=== PATIENT | male | born 1955 | race Caucasian/White ===

== ENCOUNTER → 2020-09-04 10:30 | Outpatient (CLI) | payer BC, SELFPAY ==
[2020-09-04 11:06] LABS: COVID19 -Nasal RAPID Negative (Negative)
== END ==
PROVIDERS: PCP Family Medicine; Visit Provider Specialist
DX: Z01.812 Encounter for preprocedural laboratory examination (principal); Z20.822 Contact with and (suspected) exposure to COVID-19
CPT/HCPCS: 87635; C9803

== ENCOUNTER 2020-09-07 14:15 | Day surgery (SDC) | payer BC, SELFPAY ==
[2020-09-04 09:38] VITALS: BMI 26.4
[2020-09-07 14:37] VITALS: BP 129/84; PULSE 65; RESP 18; TEMP 36.3; O2SAT 96; BMI 25.8
[2020-09-07] MEDS: LACTATED RINGERS 1,000 ML 100 ML IV (15:03)
--- NOTE | 2020-09-07 15:33 | PM.PREOP ---
Pre-operative Note COVID-19 COVID-19 status: Negative Result date/Date tested (Pos, Neg/Pending): 09/04/20 Interval Note History & Physical reviewed/Exam performed by Physician: Yes Changes to H&P: No
[2020-09-07] MEDS: CEFAZOLIN 2 GM/100 ML FROZ.PIGGY IV (15:36)
--- NOTE | 2020-09-07 15:57 | SUR.OPER ---
Supine on padded OR bed, head on pillow, arms secured on padded arm boards at <90 degrees abduction, legs uncrossed, safety belt at thigh, tape over blanket over lower legs.
[2020-09-07 16:31] VITALS: BP 102/69; PULSE 58; RESP 12; TEMP 36.9; O2SAT 95
[2020-09-07] MEDS: BUPIVACAINE 0.5% (PF) VIAL 30 ML INJ (16:35)
[2020-09-07 16:36] VITALS: BP 98/62; PULSE 57; RESP 10; O2SAT 93
[2020-09-07 16:41] VITALS: BP 125/80; PULSE 65; RESP 11; O2SAT 94
--- NOTE | 2020-09-07 16:41 | SUR.PHASEI ---
awake, drowsy, denies pain/nausea; HOB elevated, juice given.
--- NOTE | 2020-09-07 16:42 | SUR.PHASEI ---
Denies dizziness or light headedness. Introduced himself, polite manners
--- NOTE | 2020-09-07 16:44 | PM.OP.1 ---
Operative Date/Time/Diagnoses Date of procedure: 09/07/20 Time of procedure: 16:44 Pre-op diagnosis: Epigastric hernia. Hemorrhoids. Possible rectal prolapse. Post-op diagnosis: same Procedure & Clinicians Procedure: Anoscopy. Repair of epigastric hernia with underlay of mesh. Same procedure as scheduled: Yes Indications: Determine nature of prolapse. Repair hernia. Surgeon: Hansel Young Click Yes if Unassisted: Yes Anesthesia Type: General Operative Notes Findings: Small amount of mucosal prolapse along with principally external and internal hemorrhoids.. Patient would do well with a simple hemorrhoidectomy. Small epigastric defects. Repaired with an underlay of mesh. Teeth Closure Type: primary Specimen(s): none sent Prosthetic devices, grafts, tissues, transplants, or devices: 1.7 in circular mesh Estimated Blood Loss (mL): 5 Blood products transfused: none Procedure in detail: Patient was placed supine on the operating room table underwent general LMA anesthesia. Legs were bent upward an anoscope inserted into his anus. A small amount meat of mucosal prolapse overlying an internal hemorrhoid. There were 2 columns of hemorrhoids it would probably benefit from hemorrhoidectomy. The amount of rectal prolapse was minimal and would probably be amenable to have a simple hemorrhoidectomy to control the problem. Anoscope was removed. The patient's legs were straightened and he was prepped and draped in the usual fashion to repairs hernia. Small incision was made in the upper abdomen and carried down level of fascia. I cleared the anterior fascia in the midline and identified the hernia. The consisted preperitoneal fat. This was reduced. The fascial edge was cleared. I extended the fascial defect about a mm or I could insert a finger and feel for additional hernias. None was found. I placed a circular piece of mesh under it incorporated the tails into the fascial repair which was undertaken with interrupted 1. Ethibond suture. The subQ was closed with interrupted 3 0 Vicryl and skin was closed a running 4-0 Vicryl subcuticular stitch and Steri-Strips. Dressing was applied. Patient was awakened extubated taken recovery area in good condition. Complications: none Post-operative Condition: stable Disposition: PACU Plan for aftercare: Follow-up in the office
[2020-09-07 16:51] VITALS: BP 111/69; PULSE 58; RESP 10; TEMP 36.2; O2SAT 94
[2020-09-07 17:01] VITALS: BP 133/89; PULSE 67; RESP 95; TEMP 36.3; O2SAT 18
[2020-09-07] MEDS: OXYCODONE/ACETAMINOPHEN 5/325 TABLET 1 TAB PO (17:01)
== END 2020-09-07 17:15 | disposition home or self-care (01) ==
PROVIDERS: PCP Family Medicine; Referring Provider Specialist; Visit Provider Specialist
PROC: (CPT 49560; principal; 2020-09-07 15:15)
PROC: (CPT 45990; 2020-09-07 15:15)
DX: K43.9 Ventral hernia without obstruction or gangrene (principal); K62.3 Rectal prolapse; I10 Essential (primary) hypertension; E78.5 Hyperlipidemia, unspecified; K64.8 Other hemorrhoids
CPT/HCPCS: 49560; 46600; 49568; 82962; C1781; J0690; J2704; J3010

== ENCOUNTER → 2020-10-09 10:27 | Outpatient (CLI) | payer BC, SELFPAY ==
[2020-10-09 10:59] LABS: COVID19 -Nasal RAPID Negative (Negative)
== END ==
PROVIDERS: PCP Family Medicine; Visit Provider Specialist
DX: Z20.822 Contact with and (suspected) exposure to COVID-19 (principal)
CPT/HCPCS: 87635; C9803

== ENCOUNTER 2020-10-12 06:32 | Day surgery (SDC) | payer BC, SELFPAY ==
[2020-10-07 16:50] VITALS: BMI 26.4
[2020-10-12] VITALS (9 sets, daily range): BP systolic 116–124; BP diastolic 68–81; PULSE 55–81; RESP 8–16; TEMP 36.2–36.8; O2SAT 91–96; BMI 26.0
--- NOTE | 2020-10-12 | PATH_ITS ---
[facility] Accession Number: [id number] . 01 Material submitted: . PART A: hemorrhoids - LEFT LATERAL HEMORRHOID PART B: hemorrhoids - RIGHT LATERAL HEMORRHOID PART C: hemorrhoids - RIGHT ANTERIOR LATERAL HEMORRHOID . 02 Diagnosis: A. Left Lateral Hemorrhoid, Biopsy: Consistent with hemorrhoidal tissue. . B. Right Lateral Hemorrhoid, Biopsy: 1. Tubular adenoma. 2. Consistent with hemorrhoidal tissue. . C. Right Anterior Lateral Hemorrhoid, Biopsy: Consistent with hemorrhoidal tissue. I 10/15/2020 1533 Local . 02 Electronically signed: . Lavinia Salas MD, Pathologist NPI- [id number] . 01 Gross description: . A. Specimen A is received in formalin, labeled left lateral hemorrhoid and consists of a 2.5 x 1.5 x 1.5 cm urena-pink wrinkled skin. The margin is inked blue. The specimen is serially sectioned and entirely submitted in cassettes A1-A2. B. Specimen B is received in formalin, labeled right lateral hemorrhoid and consists of a 2.5 x 2.0 x 1.0 cm urena-pink wrinkled skin. The margin is inked blue. The specimen is serially sectioned and entirely submitted in cassettes B1-B2. C. Specimen C is received in formalin, labeled right anterior lateral hemorrhoid and consists of two urena-pink fragments of soft tissue measuring 2.0 x 1.5 x 0.5 cm in aggregate. The margins are inked blue. The specimen is serially sectioned and entirely submitted in cassettes C1-C2. ([id number]) /[facility] 10/13/2020 1637 Local . 02 Pathologist provided ICD-10: D12.8, K64.0 . 02 CPT . 454561, 158163, 977997 Performed at: 01 [facility] [address] [id number] MD Tano Asher MD Phone: [phone] Performed at: 02 [facility] [address] [place], [place] [id number] MD Lavinia Salas MD Phone: [phone]
[2020-10-12] MEDS: ACETAMINOPHEN 325 MG TABLET 975 MG PO (06:53)
[2020-10-12] MEDS: LACTATED RINGERS 1,000 ML 42 ML IV (07:01)
--- NOTE | 2020-10-12 07:49 | PM.PREOP ---
Pre-operative Note COVID-19 COVID-19 status: Negative Result date/Date tested (Pos, Neg/Pending): 10/09/20 Interval Note History & Physical reviewed/Exam performed by Physician: Yes Changes to H&P: No
--- NOTE | 2020-10-12 08:16 | SUR.OPER ---
Prone on padded OR bed, head in foam head support, gel chest rolls, gel pad under knees, pillow under lower legs, toes free of pressure, arms secured on padded arm boards at <90 degrees abduction. Safety belt at thigh.
[2020-10-12] MEDS: LIDOCAINE 1% W/EPI 20 ML INJ (08:25)
[2020-10-12] MEDS: DIBUCAINE 1% OINT 28 GM 1 APPLIC TOP (08:25)
[2020-10-12] MEDS: OXYCODONE IR 5 MG TABLET PO (09:53)
--- NOTE | 2020-10-29 18:51 | PM.OP.1 ---
Operative Date/Time/Diagnoses Date of procedure: 10/12/20 Pre-op diagnosis: Internal hemorrhoids with symptoms/prolapse Post-op diagnosis: same Procedure & Clinicians Procedure: Three column hemorrhoidectomy Same procedure as scheduled: Yes Indications: Symptomatic hemorrhoids. Surgeon: Hansel Young Click Yes if Unassisted: Yes Anesthesia Type: General Operative Notes Findings: Three columns of hemorrhoids excised. Closure Type: not applicable Specimen(s): other (Three columns of hemorrhoids) Prosthetic devices, grafts, tissues, transplants, or devices: None Estimated Blood Loss (mL): 150 Procedure in detail: The patient was placed haroon-knife prone on the operating room table after undergoing general endotracheal anesthesia. He was prepped and draped in the usual fashion. Digital exam was unremarkable. Anoscopic circular exam revealed 3 large columns of hemorrhoids. Beginning in the left lateral column a suture of 2-0 Vicryl was placed at the head of the hemorrhoidal column. It Was tied. Incision was made in the anoderm and the hemorrhoid is dissected off the underlying sphincter muscle and colonic Muscle. It was excised. The defect created was closed with a running locking 2-0 Vicryl which had been placed at the head of the column initially. Additional Vicryl sutures were added of 3-0 Vicryl to control any hemorrhage. Attention was turned to the 2 other columns of hemorrhoids. One was located in the right lateral location and 1 in the right anterior lateral location. These were excised in identical fashion to the 1st hemorrhoid. All 3 areas were examined. Meticulous hemostasis was achieved. The wounds were irrigated. Gelfoam with Nupercainal was inserted into the anus after injecting local in the perianal skin. Dressing was applied and the patient was placed back on the stretcher extubated and taken the recovery area in good condition. Complications: none Post-operative Condition: stable Disposition: PACU
== END 2020-10-12 10:20 | disposition home or self-care (01) ==
PROVIDERS: PCP Family Medicine; Referring Provider Family Medicine; Visit Provider Specialist
PROC: (CPT 46260; principal; 2020-10-12 07:45)
DX: K64.8 Other hemorrhoids (principal); D12.8 Benign neoplasm of rectum; I10 Essential (primary) hypertension; E78.5 Hyperlipidemia, unspecified; Z85.828 Personal history of other malignant neoplasm of skin; Z87.891 Personal history of nicotine dependence
CPT/HCPCS: 46260; J0330; J1100; J2250; J2405; J2704; J3010

== ENCOUNTER → 2020-11-12 09:58 | Outpatient (CLI) | payer BC, SELFPAY ==
[2020-11-12] MEDS: COVID-19 VACC #1, MRNA(MOD) 100 MCG/0.5 ML VIAL IM (10:07)
== END ==
PROVIDERS: PCP Family Medicine; Visit Provider Internal Medicine
DX: Z23 Encounter for immunization (principal)
CPT/HCPCS: 0011A; 91301

== ENCOUNTER → 2020-12-10 11:06 | Outpatient (CLI) | payer BC, SELFPAY ==
[2020-12-10] MEDS: COVID-19 VACC #2, MRNA(MOD) 100 MCG/0.5 ML VIAL IM (11:13)
== END ==
PROVIDERS: PCP Family Medicine; Visit Provider Internal Medicine
DX: Z23 Encounter for immunization (principal)
CPT/HCPCS: 0012A; 91301

== ENCOUNTER → 2020-12-11 08:32 | Outpatient (CLI) | payer BC, SELFPAY ==
--- NOTE | 2020-12-11 08:33 | DI.RAD.S_ITS ---
PROCEDURE: XR HAND RT MIN 3V INDICATIONS: chronic bilateral hand pain TECHNIQUE: 3 views of the hand(s) acquired. COMPARISON: None. FINDINGS: Bones: No fractures or dislocations. Carpal bones are normally aligned. No suspicious bony lesions. Mild 1st CMC joint osteoarthritis. Mild 1st and 5th DIP joint osteoarthritis. No osseous erosive changes. Soft tissues: No suspicious soft tissue calcifications. IMPRESSION: Osteoarthritis. Dictated by: Krysta Colin MD, PhD on 12/11/2020 at 17:09 Approved by: Krysta Colin MD, PhD on 12/11/2020 at 17:10
--- NOTE | 2020-12-11 08:33 | DI.RAD.S_ITS ---
PROCEDURE: XR HAND LT MIN 3V INDICATIONS: chronic bilateral hand pain TECHNIQUE: 3 views of the hand(s) acquired. COMPARISON: None. FINDINGS: Bones: No fractures or dislocations. Carpal bones are normally aligned. No suspicious bony lesions. Mild 1st CMC joint osteoarthritis. No osseous erosive changes. Soft tissues: No suspicious soft tissue calcifications. IMPRESSION: Mild 1st CMC joint osteoarthritis. Dictated by: Krysta Colin MD, PhD on 12/11/2020 at 17:08 Approved by: Krysta Colin MD, PhD on 12/11/2020 at 17:09
== END ==
PROVIDERS: PCP Family Medicine; Referring Provider Family Medicine; Visit Provider Family Medicine
DX: M18.0 Bilateral primary osteoarthritis of first carpometacarpal joints; M79.641 Pain in right hand; M79.642 Pain in left hand; M19.041 Primary osteoarthritis, right hand; M79.89 Other specified soft tissue disorders
CPT/HCPCS: 73130

== ENCOUNTER → 2021-06-03 10:22 | Outpatient (CLI) | payer BC, SELFPAY ==
[2021-06-03 11:35] LABS: COVID19 -Nasal RAPID Negative (Negative)
== END ==
PROVIDERS: PCP Family Medicine; Visit Provider Specialist
DX: Z01.812 Encounter for preprocedural laboratory examination (principal); Z20.822 Contact with and (suspected) exposure to COVID-19
CPT/HCPCS: 87635; C9803

== ENCOUNTER 2021-06-04 08:49 | Day surgery (SDC) | payer BC, SELFPAY ==
--- NOTE | 2021-06-04 | PATH_ITS ---
[facility] Accession Number: [id number] . 01 Material submitted: . PART A: rectum - RECTAL LESION #1 PART B: rectum - RECTAL LESION #2 . 02 Diagnosis: A-B. Rectum, Lesion #1, Lesion #2, Biopsies: Anorectal mucosa with mild active inflammation and features suggestive of mucosal prolapse. Negative for granulomas, dysplasia and malignancy. MRV 06/07/2021 1334 Local . 02 Electronically signed: . Lavinia Salas MD, Pathologist NPI- [id number] . 01 Gross description: . Part A: RECTAL LESION #1: Received in formalin are multiple fragment(s) of urena, soft tissue measuring 1.5 x 0.3 x 0.2 cm in aggregate submitted entirely in 1 cassette(s) Part B: RECTAL LESION #2: Received in formalin are 4 fragment(s) of urena, soft tissue measuring 0.3 x 0.2 x 0.2 cm to 0.2 x 0.1 x 0.1 cm submitted entirely in 1 cassette(s) /NAIN 06/05/2021 0443 Local . 02 Pathologist provided ICD-10: Z86.010 . 02 CPT . 356626, [id number] Performed at: 01 [facility] [address], [place], [place] [id number] MD Tano Asher MD Phone: [phone] Performed at: 02 [facility] [address] [place], [place] [id number] MD Lavinia Salas MD Phone: [phone]
[2021-06-04 09:14] VITALS: BP 129/87; PULSE 79; RESP 16; TEMP 36.6; O2SAT 98; BMI 25.7
[2021-06-04] MEDS: LACTATED RINGERS 1,000 ML 200 ML IV (09:25)
--- NOTE | 2021-06-04 09:34 | P.HP_ITS ---
History of Present Illness History of Present Illness Chief complaint: FLEX SIG Narrative: Patient is a gentleman who had an adenoma found on a hemorrhoid. He is here for flex a to adequately visualize the area and make sure there is no residual lesion. His last full examination/colonoscopy was in 2019 in [place]. Hemorrhoidectomy was done in September. Patient History Medical History Abdominal hernia Acute hemorrhoid Basal cell carcinoma (BCC) in situ of skin Diverticulitis Erectile dysfunction Hand pain History of nicotine dependence History of skin cancer Hyperlipidemia Hypertension Rectal prolapse Surgical History Hx of hernia repair Family & Social History Family History Father Stroke Cancer Hypertension Mother Cancer Social History: household members spouse Tobacco & Substance use: Tobacco type cigarettes,pipe Smoking Status Former smoker alcohol intake current alcohol intake frequency 0-2 drinks per day Substance Use Type does not use Meds Home Medications and Allergies Home Medications Medication Instructions Recorded Confirmed Type aspirin 81 mg tablet,delayed 81 mg PO DAILY 07/31/20 06/04/21 History release tadalafil 20 mg tablet (Cialis) 20 mg PO DAILY PRN 07/31/20 06/04/21 History ibuprofen 600 mg tablet 600 mg PO Q6H PRN #20 tab 10/12/20 06/04/21 Rx chlorthalidone 25 mg tablet 25 mg PO DAILY #90 tab 05/26/21 06/04/21 Rx ramipril 10 mg capsule 10 mg PO DAILY #90 cap 05/26/21 06/04/21 Rx simvastatin 10 mg tablet 10 mg PO DAILY #90 tab 05/26/21 06/04/21 Rx Allergies Allergy/AdvReac Type Severity Reaction Status Date / Time No Known Drug Allergies Allergy Verified 06/04/21 09:05 Review of Systems Review of Systems Narrative: No cough cold or asthma. No chest pain. No black or bloody bowel movements. Exam Vital Signs (past 8 hours): - 06/04/21 09:14 Temperature 97.8 F Pulse Rate 79 Respiratory Rate 16 Blood Pressure 129/87 Pulse Oximetry 98 Oxygen Delivery Method Room Air Narrative Exam Narrative: Pleasant cooperative patient no apparent distress. Lungs are clear to auscultation. No rales or rhonchi. Heart regular rate and rhythm no murmur gallop. Abdomen is soft nontender without mass. No obvious hernias. Patient is alert and oriented x3. Assessment & Plan Assessment and plan (1) Adenomatous polyp of rectum: Problem details: Found incidentally on a hemorrhoid specimen Status: Acute Assessment & Plan narrative: Will proceed to flex sig. I have discussed the procedure. Patient a fleets enema as a prep. Risks of bleeding and perforation, failure to find remove lesions in the potential tattoo were discussed. Time Spent With Patient Critical Care time: I spent a total of [] minutes of critical care time on this patient's care today; this time is exclusive of procedural time.
--- NOTE | 2021-06-04 09:39 | PM.PREOP ---
Pre-operative Note COVID-19 COVID-19 status: Negative Result date/Date tested (Pos, Neg/Pending): 06/03/21 Interval Note History & Physical reviewed/Exam performed by Physician: Yes Changes to H&P: No ASA Class (for procedural sedation): II
[2021-06-04] MEDS: MIDAZOLAM 5 MG/5 ML VIAL IV (09:41)
[2021-06-04] MEDS: fentaNYL 250 MCG/5 ML INJ IV (09:41)
--- NOTE | 2021-06-04 09:51 | PM.OP.COLON ---
Operative Date/Time/Diagnoses Date of procedure: 06/04/21 Time of procedure: 09:51 Pre-op diagnosis: Incidentally found adenoma on hemorrhoid specimen. Brought to re-evaluate the area after it has healed. Post-op diagnosis: same Procedure & Clinicians Study performed: Flexible sigmoidoscopy with cold biopsy Same procedure as scheduled: Yes Indications: See above. Incidental adenoma on hemorrhoid specimen. Surgeon: Hansel Young Procedure Notes SCOAP/Timeout: Performed Procedure in detail: The patient was placed in left lateral decubitus position underwent IV sedation. Digital exam showed a visible external with whose surfaces and no evidence of neoplasm. Sphincter tone is normal. I could feel no masses. Prostate was not felt. Colonoscope was inserted and advanced to 20 cm. There were no obvious lesions seen. I retroflexed and again saw no obvious lesion but I did see scarring from his prior operation. I slowly brought the scope through the anal verge and there are 2 areas that were slightly different than the surrounding tissue. I biopsied these. The 1st specimen was a raised lesion that looked like scar. The 2nd was a lesion on soft tissue just at the anal verge. The scope was removed the patient tolerated the procedure well. Specimen(s): other (Biopsies the in the anal canal/ano-rectal region) Complications: none Post-procedure Recommendations: Will call with biopsy results Follow up: as needed Disposition: PACU
[2021-06-04 09:55] VITALS: BP 121/81; PULSE 72; RESP 16; TEMP 36.6; O2SAT 93
[2021-06-04 10:00] VITALS: BP 113/79; PULSE 73; RESP 14; O2SAT 96
[2021-06-04 10:05] VITALS: BP 123/80; PULSE 83; RESP 16; O2SAT 93
[2021-06-04 10:10] VITALS: BP 121/80; PULSE 74; RESP 16; O2SAT 94
== END 2021-06-04 10:22 | disposition home or self-care (01) ==
PROVIDERS: PCP Family Medicine; Referring Provider Specialist; Visit Provider Specialist
PROC: 0DJD8ZZ Inspection of Lower Intestinal Tract, Via Natural or Artificial Opening Endoscopic (ICD-10-PCS; CPT 45378; principal; 2021-06-04 09:45)
DX: D12.8 Benign neoplasm of rectum (principal); I10 Essential (primary) hypertension; E78.5 Hyperlipidemia, unspecified
CPT/HCPCS: 45331; J2250; J3010

== ENCOUNTER 2021-06-09 13:01 | Observation (INO) | payer BC, SELFPAY ==
[2021-06-09] VITALS (7 sets, daily range): BP systolic 137–150; BP diastolic 79–100; PULSE 74–79; RESP 14–20; TEMP 35.7–37.8; O2SAT 95–100; BMI 25.0
--- NOTE | 2021-06-09 13:46 | ED.ABDPAIN ---
HPI - Abdominal Pain <CHOLO Lucio - Last Filed: 06/09/21 17:07> General Chief Complaint: Abdominal Pain Stated Complaint: Groin swelling/pain/acid reflux x2days Time Seen by Provider: 06/09/21 13:21 Source: patient Mode of arrival: Ambulatory History of Present Illness HPI narrative: The patient is a 65-year-old male nonsmoker with history of recent sigmoidoscopy on 06/04 where he had biopsies taken. He presents to the emergency department with worsening abdominal pain, right lower quadrant/inguinal swollen glands, decreased appetite and vomiting. He states that this swollen glands started yesterday, he has not felt well since his procedure. He states he had a bowel movement after a enema yesterday. He states he had 2 minutes of profuse vomiting and has not been able to keep anything down. He states that they contacted his surgeon's office, who referred him to the emergency department yesterday, so they presented to the walk-in clinic today. He had a COVID test this morning in preparation for moving to [place] later this week. He has not taken anything for the pain, states that ibuprofen made him vomit. Related Data Home Medications Medication Instructions Recorded Confirmed aspirin 81 mg tablet,delayed 81 mg PO DAILY 07/31/20 06/09/21 release tadalafil 20 mg tablet (Cialis) 20 mg PO DAILY PRN 07/31/20 06/09/21 Previous Rx's Medication Instructions Recorded ibuprofen 600 mg tablet 600 mg PO Q6H PRN #20 tab 10/12/20 chlorthalidone 25 mg tablet 25 mg PO DAILY #90 tab 05/26/21 ramipril 10 mg capsule 10 mg PO DAILY #90 cap 05/26/21 simvastatin 10 mg tablet 10 mg PO DAILY #90 tab 05/26/21 Allergies Allergy/AdvReac Type Severity Reaction Status Date / Time No Known Drug Allergies Allergy Verified 06/09/21 12:37 Review of Systems <CHOLO Lucio - Last Filed: 06/09/21 17:07> Review of Systems Narrative: GENERAL: Denies chills, fatigue, malaise, fever, sweats. HEENT: Denies sinus pain, ear pain, sore throat, difficulty swallowing, dizziness. RESPIRATORY: Denies dyspnea, cough, wheezing, hemoptysis, sputum. CARDIOVASCULAR: Denies chest pain, palpitations, orthopnea, edema, GASTROINTESTINAL: See HPI : See HPI MUSCULOSKELETAL: denies weakness, joint pain, or bony pain SKIN: Denies rash, skin lesions, or other NEUROLOGIC: Denies weakness, headache, numbness, change in speech, confusion, seizures, incoordination. PSYCHIATRIC: No concerning psychosocial issues. 12 point review of systems is negative except for those stated above Patient History <CHOLO Lucio - Last Filed: 06/09/21 17:07> Medical History Abdominal hernia Acute hemorrhoid Basal cell carcinoma (BCC) in situ of skin Diverticulitis Erectile dysfunction Hand pain History of nicotine dependence History of skin cancer Hyperlipidemia Hypertension Rectal prolapse Surgical History Hx of hernia repair Family History Father Stroke Cancer Hypertension Mother Cancer Social History marital status: household members: spouse Smoking Status: Former smoker alcohol intake: current substance use type: does not use Smoking Status: Former smoker alcohol intake frequency: 0-2 drinks per day Substance Use Type: does not use Exam <CHOLO Lucio - Last Filed: 06/09/21 17:07> Narrative Exam Narrative: GENERAL: This is a well-nourished, well-developed patient, in no acute distress lying on stretcher HEAD: Atraumatic. Normocephalic. No temporal or scalp tenderness. EYES: Pupils equal round and reactive. Extraocular motions intact. No scleral icterus. No injection or drainage. ENT: Nose without bleeding, purulent drainage or septal hematoma. Wearing a mask. Airway patent. NECK: Trachea midline. No JVD or lymphadenopathy. Supple, nontender, no meningeal signs. CARDIOVASCULAR: Regular rate and rhythm RESPIRATORY: Clear to auscultation. Breath sounds equal bilaterally. No wheezes, rales, or rhonchi. No cough no increased respiratory effort. No accessory muscle use. GASTROINTESTINAL: Abdomen soft, diffusely tender, bulging noted her right inguinal area, hypoactive bowel tones EXTREMITIES: No clubbing, cyanosis, or edema. No joint tenderness, effusion, or edema noted. BACK: Nontender without deformity or crepitance. No flank tenderness. NEURO: AOx3. SKIN: No rash or erythema on visible skin Initial Vital Signs Initial Vital Signs: Vital Signs Temperature 98.7 F 06/09/21 13:16 Pulse Rate 74 06/09/21 13:16 Respiratory Rate 16 06/09/21 13:16 Blood Pressure 137/92 H 06/09/21 13:16 Pulse Oximetry 100 06/09/21 13:16 <Juan Kong DO - Last Filed: 06/09/21 17:13> Initial Vital Signs Initial Vital Signs: Vital Signs Temperature 98.7 F 06/09/21 13:16 Pulse Rate 74 06/09/21 13:16 Respiratory Rate 16 06/09/21 13:16 Blood Pressure 137/92 H 06/09/21 13:16 Pulse Oximetry 100 06/09/21 13:16 Scores <CHOLO Lucio - Last Filed: 06/09/21 17:07> GCS Ainsley coma scale eye opening: Spontaneous [place]ley coma scale verbal response: Orientated [place]ley coma scale motor response: Obey commands Ainsley coma scale total score: 15 <Juan Kong DO - Last Filed: 06/09/21 17:13> GCS [place] coma scale total score: 15 Course <CHOLO Lucio - Last Filed: 06/09/21 17:07> Orders Ordered: ED Orders 06/09/21 13:43 Complete Blood Count AUTO DIFF Stat Comprehensive Metabolic Panel Stat Lactate (Lactic Acid) Stat Lipase Stat Procalcitonin Stat 06/09/21 14:21 CT abdomen pelvis w con Stat 06/09/21 15:31 COVID19 -Nasal swab/Pre-Proc Stat 06/09/21 15:41 Education, smoking cessation ONGOING Acetaminophen (Acetaminophen 325 Mg Tablet) 650 mg PO Q6HR PRN PRN Reason: Fever/Mild Pain (1-3) Dextrose/Sodium Chloride (Dextrose 5%-0.45% Ns) 1,000 mls @ 100 mls/hr IV CONT FRANCHESKA Ketorolac Tromethamine (Ketorolac 10 Mg Tablet) 10 mg PO Q6HR PRN PRN Reason: Pain, Moderate (4-6) Stop: 06/14/21 15:44 Morphine Sulfate (Morphine 2 Mg/Ml Inj) 2 mg IV Q2HR PRN PRN Reason: Pain, Severe (7-10) Naloxone HCl (Naloxone 0.4 Mg/Ml Vial) 0.2 mg IV Q2MIN PRN PRN Reason: Opiate Reversal Ondansetron HCl (Ondansetron 4 Mg/2 Ml Inj) 4 mg IV Q6HR PRN PRN Reason: Nausea And Vomiting Discontinued Medications Cefazolin Sodium (Cefazolin 1 Gm Vial) 2 gm IV INTRA-OP ONE Stop: 06/09/21 15:48 Sodium Chloride (Normal Saline 0.9%) 500 mls @ 1,000 mls/hr IV BOLUS ONE Stop: 06/09/21 14:06 Last Infusion: 06/09/21 15:30 Dose: 0 mls/hr Documented by: Admin: 06/09/21 13:58 Dose: 1,000 mls/hr Documented by: DIANA Morphine Sulfate (Morphine 4 Mg/Ml Inj) 4 mg IV NOW ONE Stop: 06/09/21 13:38 Last Admin: 06/09/21 13:50 Dose: 4 mg Documented by: DIANA Ondansetron HCl (Ondansetron 4 Mg/2 Ml Inj) 4 mg IV NOW ONE Stop: 06/09/21 13:38 Last Admin: 06/09/21 13:50 Dose: 4 mg Documented by: DIANA Vital Signs Vital signs: Vital Signs - 8 hr 06/09/21 13:16 Temperature 98.7 F Pulse Rate 74 Respiratory Rate 16 Blood Pressure 137/92 H Pulse Oximetry 100 <Juan Kong DO - Last Filed: 06/09/21 17:13> Orders Ordered: ED Orders 06/09/21 13:43 Complete Blood Count AUTO DIFF Stat Comprehensive Metabolic Panel Stat Lactate (Lactic Acid) Stat Lipase Stat Procalcitonin Stat 06/09/21 14:21 CT abdomen pelvis w con Stat 06/09/21 15:31 COVID19 -Nasal swab/Pre-Proc Stat 06/09/21 15:41 Education, smoking cessation ONGOING Acetaminophen (Acetaminophen 325 Mg Tablet) 650 mg PO Q6HR PRN PRN Reason: Fever/Mild Pain (1-3) Dextrose/Sodium Chloride (Dextrose 5%-0.45% Ns) 1,000 mls @ 100 mls/hr IV CONT FRANCHESKA Ketorolac Tromethamine (Ketorolac 10 Mg Tablet) 10 mg PO Q6HR PRN PRN Reason: Pain, Moderate (4-6) Stop: 06/14/21 15:44 Morphine Sulfate (Morphine 2 Mg/Ml Inj) 2 mg IV Q2HR PRN PRN Reason: Pain, Severe (7-10) Naloxone HCl (Naloxone 0.4 Mg/Ml Vial) 0.2 mg IV Q2MIN PRN PRN Reason: Opiate Reversal Ondansetron HCl (Ondansetron 4 Mg/2 Ml Inj) 4 mg IV Q6HR PRN PRN Reason: Nausea And Vomiting Discontinued Medications Cefazolin Sodium (Cefazolin 1 Gm Vial) 2 gm IV INTRA-OP ONE Stop: 06/09/21 15:48 Sodium Chloride (Normal Saline 0.9%) 500 mls @ 1,000 mls/hr IV BOLUS ONE Stop: 06/09/21 14:06 Last Infusion: 06/09/21 15:30 Dose: 0 mls/hr Documented by: Admin: 06/09/21 13:58 Dose: 1,000 mls/hr Documented by: DIANA Morphine Sulfate (Morphine 4 Mg/Ml Inj) 4 mg IV NOW ONE Stop: 06/09/21 13:38 Last Admin: 06/09/21 13:50 Dose: 4 mg Documented by: DIANA Ondansetron HCl (Ondansetron 4 Mg/2 Ml Inj) 4 mg IV NOW ONE Stop: 06/09/21 13:38 Last Admin: 06/09/21 13:50 Dose: 4 mg Documented by: DIANA Vital Signs Vital signs: Vital Signs - 8 hr 06/09/21 13:16 Temperature 98.7 F Pulse Rate 74 Respiratory Rate 16 Blood Pressure 137/92 H Pulse Oximetry 100 MDM - Abdominal Pain <CHOLO Lucio - Last Filed: 06/09/21 17:07> Differential Diagnosis Differential diagnosis: Likely abdominal pain, acute appendicitis, constipation and diverticulitis Lab Data Attestation: I reviewed the patient's lab results. Result diagrams: 06/09/21 13:43 06/09/21 13:43 Labs: Lab Results 06/09/21 06/09/21 06/09/21 Range/Units 13:43 13:43 13:43 WBC 14.1 H (4.5-11.0) X10^3/uL RBC 5.69 (4.5-5.9) X10^6/uL Hgb 16.9 (13.5-17.5) g/dL Hct 50.1 (41-53) % MCV 88.0 (80-100) fL MCH 29.7 (26-34) PG MCHC 33.7 (30-36) % RDW 13.0 (11.6-14.8) % Plt Count 306 (150-400) X10^3/uL Neut % (Auto) 90.0 H (50-75) % Lymph % (Auto) 3.3 L (25-40) % [place] % (Auto) 6.4 (3-14) % Eos % (Auto) 0.1 L (2-4) % Baso % (Auto) 0.2 (0-2) % Neut # (Auto) 05071 H (4187-2654) /uL Lymph # (Auto) 500 L (3973-2115) /uL [place] # (Auto) 900 (0-900) /uL Eos # (Auto) 0 (0-450) /uL Baso # (Auto) 0 (0-100) /uL Sodium 130 L (137-145) mmol/L Potassium 3.5 (3.4-5.1) mmol/L Chloride 91 L (98-107) mmol/L Carbon Dioxide 30 (22-32) mmol/L BUN 15 (9-20) mg/dL Creatinine 0.67 (0.66-1.25) mg/dL Estimated GFR > 60.0 (>60) mL/min BUN/Creatinine Ratio 22.4 H (6-22) Glucose 130 H (80-110) mg/dL Lactate 1.3 (0.7-2.1) mmol/L Calcium 9.5 (8.4-10.2) mg/dL Total Bilirubin 0.9 (0.2-1.3) mg/dL AST 35 (17-59) IU/L ALT 30 (<50) IU/L Alkaline Phosphatase 80 (38-126) U/L Total Protein 8.2 (6.3-8.2) g/dL Albumin 4.6 (3.5-5.0) g/dL Globulin 3.6 (1.7-4.1) g/dL Albumin/Globulin Ratio 1.3 (1.0-2.8) Lipase 76 (23-300) U/L Procalcitonin 0.04 (<0.5) ng/mL SARS-CoV-2 (PCR) (Negative) 06/09/21 Range/Units 15:31 WBC (4.5-11.0) X10^3/uL RBC (4.5-5.9) X10^6/uL Hgb (13.5-17.5) g/dL Hct (41-53) % MCV (80-100) fL MCH (26-34) PG MCHC (30-36) % RDW (11.6-14.8) % Plt Count (150-400) X10^3/uL Neut % (Auto) (50-75) % Lymph % (Auto) (25-40) % [place] % (Auto) (3-14) % Eos % (Auto) (2-4) % Baso % (Auto) (0-2) % Neut # (Auto) (4403-1054) /uL Lymph # (Auto) (8013-6051) /uL [place] # (Auto) (0-900) /uL Eos # (Auto) (0-450) /uL Baso # (Auto) (0-100) /uL Sodium (137-145) mmol/L Potassium (3.4-5.1) mmol/L Chloride (98-107) mmol/L Carbon Dioxide (22-32) mmol/L BUN (9-20) mg/dL Creatinine (0.66-1.25) mg/dL Estimated GFR (>60) mL/min BUN/Creatinine Ratio (6-22) Glucose (80-110) mg/dL Lactate (0.7-2.1) mmol/L Calcium (8.4-10.2) mg/dL Total Bilirubin (0.2-1.3) mg/dL AST (17-59) IU/L ALT (<50) IU/L Alkaline Phosphatase (38-126) U/L Total Protein (6.3-8.2) g/dL Albumin (3.5-5.0) g/dL Globulin (1.7-4.1) g/dL Albumin/Globulin Ratio (1.0-2.8) Lipase (23-300) U/L Procalcitonin (<0.5) ng/mL SARS-CoV-2 (PCR) Negative (Negative) Point of care testing: Urine Dip Bedside Urine Glucose Negative Bedside Urine Bilirubin - Negative Bedside Urine Ketone + 15 Urine Specific [place] 1.015 Bedside Urine Occult Blood - Negative Bedside Urine pH 6.0 Bedside Urine Protein + 30 Bedside Urine Urobilinogen - Negative Bedside Urine Nitrite - Negative Bedside Urine Leukocytes - Negative Esterase Imaging Data CT scan - abdomen/pelvis: My Impression: [address] [place] [id number] Scan Report Signed Patient: Keagan Oconnor I MR#: [id number] : 1955 Acct:[id number] Age/Sex: 65 / M Date of Service: 06/09/21 Loc: ED Accession Number: [id number] ?? Procedure: CT abdomen pelvis w con Ordering Provider: Fay Graham PRACTICE COORDINATOR- PROCEDURE:? CT ABDOMEN PELVIS W CON ? INDICATIONS:? recent scope, abd pain, swollen inguinal glands ? TECHNIQUE:? After the administration of intravenous contrast, axial sections acquired from the lung bases to the pubic symphysis.? Coronal and sagittal reformats were performed.? For radiation dose reduction, the following was used:? automated exposure control, adjustment of mA and/or kV according to patient size.? ? COMPARISON:? None. ? FINDINGS:? Image quality:? Excellent.? ? Lung bases:? Bibasilar scarring/atelectasis is seen. Heart:? Heart size is mildly enlarged, no pericardial effusion.? Coronary atherosclerotic calcifications are seen. ? ABDOMEN: Liver:? Liver is normal in size.? Numerous well-circumscribed hypodense structures are seen scattered in right and left hepatic lobe and measures up to 5.1 x 5.4 cm in size in anterior segment of right hepatic lobe series 2 image 16.? This structure measures 11 Hounsfield unit in density.? Finding likely represent hepatic cysts. Gallbladder:? Within normal limits. Biliary ducts:? Unremarkable.? ? Pancreas:? Unremarkable.? ? Spleen:? Unremarkable.? ? Adrenal Glands:? Unremarkable.? ? Kidneys and Ureters:? Small right renal cortical cyst is seen.? No renal stone or hydronephrosis. ? Stomach and Bowel:? There is a small hiatal hernia.? Fluid distended stomach lumen is noted.? There is moderate fluid distension of small bowel loops throughout abdomen and measures up to 3.7 cm in diameter series 2, image 40. There is a right inguinal hernia containing fat and a short segment of terminal ileal loop.? Fluid distended small bowel loop is seen within the herniation sac.? There is decompression of the terminal ileal loop exiting the herniation sac concerning for distal small bowel obstruction at this level.? Extensive sigmoid diverticulosis is seen, no evidence of acute diverticulitis.? No abscess collection. Peritoneum:? There is small to moderate amount of peritoneal free fluid predominantly along anterior and lateral aspect of liver and adjacent to lateral periphery of spleen.? No peritoneal free air. ? Ventral Wall: ? No hernias.? Abdominal Nodes:? No retroperitoneal or mesenteric adenopathy by size criteria.? Vessels:? Aorta and inferior vena cava are normal in size.? [id number] atherosclerotic calcifications throughout abdominal aorta and bilateral iliac arteries are seen. ? PELVIS: Pelvic Organs:? Prostate gland is enlarged with mild mass effect on floor of urinary bladder. Bladder:? Unremarkable.? ? Pelvic Nodes: No enlarged lymph nodes.? Miscellaneous:? Large right inguinal hernia as above.? No left inguinal hernia. ? Bones:? No suspicious bony lesion.? No acute vertebral body compression fracture. ? ? IMPRESSION:? 1. Large right inguinal hernia containing terminal ileal loop with suggestion of distal small bowel obstruction at the level of inguinal hernia.? Early incarceration cannot be excluded.? Small amount of free fluid in abdomen and pelvis.? No gross free air. 2. No significant abnormal bowel wall thickening.? No abscess collection.? Extensive colonic diverticulosis without evidence of a diverticulitis.? Small hiatal hernia. 3.? Numerous well-circumscribed hypodense structures seen scattered throughout liver parenchyma and likely represent hepatic cysts. 4. No renal stone or hydronephrosis.? Enlarged prostate gland with mass effect on floor of urinary bladder.? ? ? Dictated by: Jose Shelton M.D. on 06/09/2021 at 14:53 ? ? Approved by: Jose Shelton M.D. on 06/09/2021 at 15:02 ? MDM Narrative Medical decision making narrative: The patient is a 65-year-old male who presents with a chief complaint of abdominal pain discomfort vomiting and bulging in his right lower quadrant thought to be lymph nodes. He had a scope done at this facility on the 8. Abdomen is diffusely tender to palpation, possible lymphadenopathy versus hernia noted on right inguinal area. Lab work shows leukocytosis with a white count of 14, CT scan is concerning for an inguinal hernia, with a distal small-bowel obstruction, early encourage duration cannot be excluded. I spoke with Dr. Oconnor, who kindly viewed the patient's images. She requested that the patient be admitted to her service after an NG tube. This was inserted by nursing with no complications. Patient and were appreciative of care, admitted to floor. He has been hemodynamically stable throughout his stay in the ER. <Juan Kong, DO - Last Filed: 06/09/21 17:13> Lab Data Labs: Lab Results 06/09/21 06/09/21 06/09/21 Range/Units 13:43 13:43 13:43 WBC 14.1 H (4.5-11.0) X10^3/uL RBC 5.69 (4.5-5.9) X10^6/uL Hgb 16.9 (13.5-17.5) g/dL Hct 50.1 (41-53) % MCV 88.0 (80-100) fL MCH 29.7 (26-34) PG MCHC 33.7 (30-36) % RDW 13.0 (11.6-14.8) % Plt Count 306 (150-400) X10^3/uL Neut % (Auto) 90.0 H (50-75) % Lymph % (Auto) 3.3 L (25-40) % [place] % (Auto) 6.4 (3-14) % Eos % (Auto) 0.1 L (2-4) % Baso % (Auto) 0.2 (0-2) % Neut # (Auto) 92198 H (6967-2468) /uL Lymph # (Auto) 500 L (4398-2292) /uL [place] # (Auto) 900 (0-900) /uL Eos # (Auto) 0 (0-450) /uL Baso # (Auto) 0 (0-100) /uL Sodium 130 L (137-145) mmol/L Potassium 3.5 (3.4-5.1) mmol/L Chloride 91 L (98-107) mmol/L Carbon Dioxide 30 (22-32) mmol/L BUN 15 (9-20) mg/dL Creatinine 0.67 (0.66-1.25) mg/dL Estimated GFR > 60.0 (>60) mL/min BUN/Creatinine Ratio 22.4 H (6-22) Glucose 130 H (80-110) mg/dL Lactate 1.3 (0.7-2.1) mmol/L Calcium 9.5 (8.4-10.2) mg/dL Total Bilirubin 0.9 (0.2-1.3) mg/dL AST 35 (17-59) IU/L ALT 30 (<50) IU/L Alkaline Phosphatase 80 (38-126) U/L Total Protein 8.2 (6.3-8.2) g/dL Albumin 4.6 (3.5-5.0) g/dL Globulin 3.6 (1.7-4.1) g/dL Albumin/Globulin Ratio 1.3 (1.0-2.8) Lipase 76 (23-300) U/L Procalcitonin 0.04 (<0.5) ng/mL SARS-CoV-2 (PCR) (Negative) 06/09/21 Range/Units 15:31 WBC (4.5-11.0) X10^3/uL RBC (4.5-5.9) X10^6/uL Hgb (13.5-17.5) g/dL Hct (41-53) % MCV (80-100) fL MCH (26-34) PG MCHC (30-36) % RDW (11.6-14.8) % Plt Count (150-400) X10^3/uL Neut % (Auto) (50-75) % Lymph % (Auto) (25-40) % [place] % (Auto) (3-14) % Eos % (Auto) (2-4) % Baso % (Auto) (0-2) % Neut # (Auto) (4500-6516) /uL Lymph # (Auto) (9897-1503) /uL [place] # (Auto) (0-900) /uL Eos # (Auto) (0-450) /uL Baso # (Auto) (0-100) /uL Sodium (137-145) mmol/L Potassium (3.4-5.1) mmol/L Chloride (98-107) mmol/L Carbon Dioxide (22-32) mmol/L BUN (9-20) mg/dL Creatinine (0.66-1.25) mg/dL Estimated GFR (>60) mL/min BUN/Creatinine Ratio (6-22) Glucose (80-110) mg/dL Lactate (0.7-2.1) mmol/L Calcium (8.4-10.2) mg/dL Total Bilirubin (0.2-1.3) mg/dL AST (17-59) IU/L ALT (<50) IU/L Alkaline Phosphatase (38-126) U/L Total Protein (6.3-8.2) g/dL Albumin (3.5-5.0) g/dL Globulin (1.7-4.1) g/dL Albumin/Globulin Ratio (1.0-2.8) Lipase (23-300) U/L Procalcitonin (<0.5) ng/mL SARS-CoV-2 (PCR) Negative (Negative) Point of care testing: Urine Dip Bedside Urine Glucose Negative Bedside Urine Bilirubin - Negative Bedside Urine Ketone + 15 Urine Specific [place] 1.015 Bedside Urine Occult Blood - Negative Bedside Urine pH 6.0 Bedside Urine Protein + 30 Bedside Urine Urobilinogen - Negative Bedside Urine Nitrite - Negative Bedside Urine Leukocytes - Negative Esterase Discharge Plan Departure Patient Disposition: Admitted as Observation Admit Date/Time: 06/09/21 15:41 Admit Provider: Key Oconnor <Juan Kong DO - Last Filed: 06/09/21 17:13> Cosign ED Attending Nickature Attestation: Dr Kong Co-Sign Statement: I was available for consultation during this patient's emergency department visit. This chart is signed by myself for administrative purposes only. I did not have direct contact with this patient during this visit. They were seen independently by the APC.
[2021-06-09] MEDS: ONDANSETRON 4 MG/2 ML INJ IV (13:50)
[2021-06-09] MEDS: MORPHINE 4 MG/ML INJ IV (13:50)
[2021-06-09 13:52] LABS: Add Manual Diff / Slide Review NO; Basophils Absolute Auto 0 /uL (0-100); Basophils Percent Auto 0.2 % (0-2); Eosinophils Absolute Auto 0 /uL (0-450); Eosinophils Percent Auto 0.1 % (2-4); Hematocrit 50.1 % (41-53); Hemoglobin 16.9 g/dL (13.5-17.5); Lymphocytes Absolute Auto 500 /uL (1100-4500); Lymphocytes Percent Auto 3.3 % (25-40); Mean Corpuscular HGB Conc 33.7 % (30-36); Mean Corpuscular Hemoglobin 29.7 PG (26-34); Monocytes Absolute Auto 900 /uL (0-900); Monocytes Percent Auto 6.4 % (3-14); Neutrophils Absolute Auto 12700 /uL (1500-7000); Platelet Count 306 X10^3/uL (150-400); Red Blood Cell Count 5.69 X10^6/uL (4.5-5.9); White Blood Cell Count 14.1 X10^3/uL (4.5-11.0)
[2021-06-09] MEDS: SODIUM CHLORIDE 0.9% 500 ML 1000 ML IV (13:58)
[2021-06-09 14:05] LABS: Alanine Aminotransferase 30 IU/L (<50); Albumin 4.6 g/dL (3.5-5.0); Albumin Globulin Ratio 1.3 (1.0-2.8); Alkaline Phosphatase 80 U/L (38-126); Aspartate Aminotransferase 35 IU/L (17-59); BUN Creatinine Ratio 22.4 (6-22); Bilirubin Total 0.9 mg/dL (0.2-1.3); Blood Urea Nitrogen 15 mg/dL (9-20); Calcium 9.5 mg/dL (8.4-10.2); Carbon Dioxide 30 mmol/L (22-32); Chloride 91 mmol/L (98-107); Estimated Glomerular Filt Rate > 60.0 mL/min (>60); Globulin 3.6 g/dL (1.7-4.1); Glucose 130 mg/dL (80-110); HEMOLYSIS < 15 (0-50); Lipase 76 U/L (23-300); Potassium 3.5 mmol/L (3.4-5.1); Sodium 130 mmol/L (137-145); Total Protein 8.2 g/dL (6.3-8.2)
[2021-06-09 14:06] LABS: Lactate (Lactic Acid) 1.3 mmol/L (0.7-2.1)
--- NOTE | 2021-06-09 14:21 | DI.CT.S_ITS ---
PROCEDURE: CT ABDOMEN PELVIS W CON INDICATIONS: recent scope, abd pain, swollen inguinal glands TECHNIQUE: After the administration of intravenous contrast, axial sections acquired from the lung bases to the pubic symphysis. Coronal and sagittal reformats were performed. For radiation dose reduction, the following was used: automated exposure control, adjustment of mA and/or kV according to patient size. COMPARISON: None. FINDINGS: Image quality: Excellent. Lung bases: Bibasilar scarring/atelectasis is seen. Heart: Heart size is mildly enlarged, no pericardial effusion. Coronary atherosclerotic calcifications are seen. ABDOMEN: Liver: Liver is normal in size. Numerous well-circumscribed hypodense structures are seen scattered in right and left hepatic lobe and measures up to 5.1 x 5.4 cm in size in anterior segment of right hepatic lobe series 2 image 16. This structure measures 11 Hounsfield unit in density. Finding likely represent hepatic cysts. Gallbladder: Within normal limits. Biliary ducts: Unremarkable. Pancreas: Unremarkable. Spleen: Unremarkable. Adrenal Glands: Unremarkable. Kidneys and Ureters: Small right renal cortical cyst is seen. No renal stone or hydronephrosis. Stomach and Bowel: There is a small hiatal hernia. Fluid distended stomach lumen is noted. There is moderate fluid distension of small bowel loops throughout abdomen and measures up to 3.7 cm in diameter series 2, image 40. There is a right inguinal hernia containing fat and a short segment of terminal ileal loop. Fluid distended small bowel loop is seen within the herniation sac. There is decompression of the terminal ileal loop exiting the herniation sac concerning for distal small bowel obstruction at this level. Extensive sigmoid diverticulosis is seen, no evidence of acute diverticulitis. No abscess collection. Peritoneum: There is small to moderate amount of peritoneal free fluid predominantly along anterior and lateral aspect of liver and adjacent to lateral periphery of spleen. No peritoneal free air. Ventral Wall: No hernias. Abdominal Nodes: No retroperitoneal or mesenteric adenopathy by size criteria. Vessels: Aorta and inferior vena cava are normal in size. [id number] atherosclerotic calcifications throughout abdominal aorta and bilateral iliac arteries are seen. PELVIS: Pelvic Organs: Prostate gland is enlarged with mild mass effect on floor of urinary bladder. Bladder: Unremarkable. Pelvic Nodes: No enlarged lymph nodes. Miscellaneous: Large right inguinal hernia as above. No left inguinal hernia. Bones: No suspicious bony lesion. No acute vertebral body compression fracture. IMPRESSION: 1. Large right inguinal hernia containing terminal ileal loop with suggestion of distal small bowel obstruction at the level of inguinal hernia. Early incarceration cannot be excluded. Small amount of free fluid in abdomen and pelvis. No gross free air. 2. No significant abnormal bowel wall thickening. No abscess collection. Extensive colonic diverticulosis without evidence of a diverticulitis. Small hiatal hernia. 3. Numerous well-circumscribed hypodense structures seen scattered throughout liver parenchyma and likely represent hepatic cysts. 4. No renal stone or hydronephrosis. Enlarged prostate gland with mass effect on floor of urinary bladder. Dictated by: Jose Shelton M.D. on 06/09/2021 at 14:53 Approved by: Jose Shelton M.D. on 06/09/2021 at 15:02
[2021-06-09 14:22] LABS: Procalcitonin 0.04 ng/mL (<0.5)
[2021-06-09 15:57] LABS: COVID19 -Nasal RAPID Negative (Negative)
--- NOTE | 2021-06-09 16:43 | PC.NURSE ---
Plan to do surgery tomorrow AM 1130.
[2021-06-09 16:58] LABS: COVID19 - ADMIT (NP swab/PCR) Negative (Negative)
[2021-06-09] MEDS: CEFAZOLIN 1 GM VIAL 2 GM IV (17:15)
[2021-06-09] MEDS: DEXTROSE 5%-0.45% NS 1,000 ML 100 ML IV (17:16)
[2021-06-09] MEDS: MORPHINE 2 MG/ML INJ IV (20:07)
[2021-06-10] VITALS (19 sets, daily range): BP systolic 81–151; BP diastolic 50–87; PULSE 16–89; RESP 12–16; TEMP 36.6–37.3; O2SAT 92–96; BMI 25.0
[2021-06-10] MEDS: BENZOCAINE/MENTHOL 1 LOZ PKT 1 EACH PO ×3 (01:25→09:44)
[2021-06-10] MEDS: MORPHINE 2 MG/ML INJ IV ×3 (01:30→07:38)
[2021-06-10] MEDS: ONDANSETRON 4 MG/2 ML INJ IV (01:34)
[2021-06-10] MEDS: DEXTROSE 5%-0.45% NS 1,000 ML 100 ML IV (04:30)
--- NOTE | 2021-06-10 09:23 | CM.DANOTE ---
DCP: Case received, EMR reviewed and met with patient. Introduced self and role. Was able to obtain information from patient regarding his baseline activity level prior to hospitalization. DCP assessment completed with information currently available. Patient is a 65 year old male who admitted yesterday afternoon to the care of the hospitalist team. PCP: Dr. Rincon. Payer: confirmed: Out of State [facility]. Patient came to the hospital via private vehicle secondary to having increased abdominal pain, as well as some groinal swelling. Patient holds current diagnosis of right inguinal hernia, as well as distal small bowel obstruction. Patient currently has NG tube. He did have a consult with Dr. Oconnor, and is scheduled for surgery at approximately 11:00. Met with patient in his room. He is alert and oriented, NG tube in place. He was laying in bed. Confirmed that he resides here in [place] with his spouse, Rex. [facility], and is employed at [employer], based out of [place], [place]. He is independent at his baseline. He and his spouse recently bought a home in [facility], and his original plans were to move there tomorrow. P: DCP to continue to follow. Patient should be able to go home when he is deemed medically stable, and can tolerate his diet. Gavi Hewitt RN/Industrial Gas Fitter Discharge Planning/Care Management CM Discharge Assessment Start: 06/10/21 09:22 Freq: Status: Active Protocol: Document 06/10/21 09:22 (Rec: 06/10/21 09:23 [id number]) Discharge Planning Assessment Assigned Stream Control Officer Gavi Hewitt RN/Industrial Gas Fitter Advance Directives? No History Provided By Patient,Medical Record Prior Living Arrangements House Household Members spouse Type of transporation used prior to Drives own vehicle admit Independent with ADL's Yes Is patient alert and oriented? Yes Caregiver for Another No Barriers to Discharge No Discharge Plan Home Transportation Arrangement Spouse Referrals Initiated None needed Whiteboard Updated in Patient Room with Yes name and ext. # of Stream Control Officer Review Status In Process Next Review Type Continued Stay Review
--- NOTE | 2021-06-10 10:34 | PM.HP.1 ---
History of Present Illness History of Present Illness Date Patient Seen: 06/10/21 Time Patient Seen: 10:35 Chief complaint: Groin swelling/pain/acid reflux x2days Narrative: Patient and report they are moving to [facility] tomorrow (now on hold). Has noticed a lump in the right groin for several days and some GI upset. Has a colonoscopy last week with Dr. Machuca. Increased abdominal pain, nausea and emesis on presentation. CT scan (I reviewed personallY) shows SBO likely related to incarcerated RIH. He has had bilateral hernia repairs in the past in [place], does not think there is mesh. Patient History Medical History Abdominal hernia Acute hemorrhoid Basal cell carcinoma (BCC) in situ of skin Diverticulitis Erectile dysfunction Hand pain History of nicotine dependence History of skin cancer Hyperlipidemia Hypertension Rectal prolapse Surgical History Hx of hernia repair Family & Social History Family History Father Stroke Cancer Hypertension Mother Cancer Social History: household members spouse Prior Living Arrangements House Safety & Behavioral: Feels Safe in Current Yes Environment Been Physically Hurt or No Threatened By a Person Suicidal Ideation Description None Suicide Plan Description No Plan Tobacco & Substance use: Tobacco type cigarettes,pipe Smoking Status Former smoker alcohol intake current alcohol intake frequency 0-2 drinks per day Substance Use Type does not use Meds Home Medications and Allergies Home Medications Medication Instructions Recorded Confirmed Type aspirin 81 mg tablet,delayed 81 mg PO DAILY 07/31/20 06/09/21 History release tadalafil 20 mg tablet (Cialis) 20 mg PO DAILY PRN 07/31/20 06/09/21 History ibuprofen 600 mg tablet 600 mg PO Q6H PRN #20 tab 10/12/20 06/09/21 Rx chlorthalidone 25 mg tablet 25 mg PO DAILY #90 tab 05/26/21 06/09/21 Rx ramipril 10 mg capsule 10 mg PO DAILY #90 cap 05/26/21 06/09/21 Rx simvastatin 10 mg tablet 10 mg PO DAILY #90 tab 05/26/21 06/09/21 Rx Allergies Allergy/AdvReac Type Severity Reaction Status Date / Time No Known Drug Allergies Allergy Verified 06/09/21 12:37 Review of Systems Review of Systems ROS: Yes All systems reviewed with the patient and are negative except as otherwise documented Exam Vital Signs (past 8 hours): - 06/10/21 03:00 06/10/21 05:22 06/10/21 09:00 Temperature 97.9 F 98.5 F Pulse Rate 81 82 Respiratory Rate 16 16 Blood Pressure 132/76 124/72 Pulse Oximetry 96 94 93 06/10/21 10:25 Temperature Pulse Rate Respiratory Rate Blood Pressure Pulse Oximetry 93 Oxygen Delivery Method Room Air Oxygen Flow Rate 0 Const General: cooperative and healthy appearing Orientation: alert and awake HENAZ Head: normocephalic and atraumatic Mouth: oral mucosae normal Eyes General: appearance normal, both eyes and all related structures Neck Neck: normal visual inspection and trachea midline Chest Chest: normal inspection of the chest Resp Effort & Inspection: normal respiratory effort and able to speak in complete sentences Cardio Rate: regular rate Rhythm: regular rhythm GI Inspection: distended Palpation: soft Other: right groin has firm and soft content. +recurrent hernia, moderate tenderness. Not clinically strangulated Scrotum: scrotum normal Skin General: no rashes or lesions noted Neuro General: patient alert and patient oriented x3 Cognition: normal cognition Extrem General: normal to inspection and full ROM Psych Appearance: grossly normal Judgment: judgment good Objective Labs Result Diagrams: 06/09/21 13:43 06/09/21 13:43 Labs: Laboratory Results - last 24 hr 06/09/21 06/09/21 06/09/21 13:43 13:43 13:43 WBC 14.1 H RBC 5.69 Hgb 16.9 Hct 50.1 MCV 88.0 MCH 29.7 MCHC 33.7 RDW 13.0 Plt Count 306 Neut % (Auto) 90.0 H Lymph % (Auto) 3.3 L Buchanan % (Auto) 6.4 Eos % (Auto) 0.1 L Baso % (Auto) 0.2 Neut # (Auto) 13081 H Lymph # (Auto) 500 L Buchanan # (Auto) 900 Eos # (Auto) 0 Baso # (Auto) 0 Sodium 130 L Potassium 3.5 Chloride 91 L Carbon Dioxide 30 BUN 15 Creatinine 0.67 Estimated GFR > 60.0 BUN/Creatinine Ratio 22.4 H Glucose 130 H Lactate 1.3 Calcium 9.5 Total Bilirubin 0.9 AST 35 ALT 30 Alkaline Phosphatase 80 Total Protein 8.2 Albumin 4.6 Globulin 3.6 Albumin/Globulin Ratio 1.3 Lipase 76 Procalcitonin 0.04 SARS-CoV-2 (PCR) 06/09/21 06/09/21 15:31 15:51 WBC RBC Hgb Hct MCV MCH MCHC RDW Plt Count Neut % (Auto) Lymph % (Auto) Buchanan % (Auto) Eos % (Auto) Baso % (Auto) Neut # (Auto) Lymph # (Auto) Buchanan # (Auto) Eos # (Auto) Baso # (Auto) Sodium Potassium Chloride Carbon Dioxide BUN Creatinine Estimated GFR BUN/Creatinine Ratio Glucose Lactate Calcium Total Bilirubin AST ALT Alkaline Phosphatase Total Protein Albumin Globulin Albumin/Globulin Ratio Lipase Procalcitonin SARS-CoV-2 (PCR) Negative Negative Assessment & Plan Assessment & Plan narrative: SBO likley related to incarcerated, recurrent RIH. Plan: OR for groin exploration and RIH repair with mesh. COVID-19 COVID-19 status: Negative Time Spent With Patient Time with patient: 30 to 49 minutes with 50% spent counseling/coordinating care Critical Care time: I spent a total of [] minutes of critical care time on this patient's care today; this time is exclusive of procedural time.
[2021-06-10] MEDS: CEFAZOLIN 1 GM VIAL 2 GM IV (11:30)
--- NOTE | 2021-06-10 11:53 | SUR.OPER ---
Supine on padded OR bed, head on pillow, arms secured on padded arm boards at <90 degrees abduction, legs uncrossed, safety belt at thigh, tape over blanket over lower legs.
[2021-06-10] MEDS: BUPIVACAINE 0.25% (PF) VIAL 30 ML INJ (12:03)
--- NOTE | 2021-06-10 12:22 | P.OP_ITS ---
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 Portion of the small bowel and cecum were dusky from decreased blood supply but viable in appearance. Specimen(s): none sent Prosthetic devices, grafts, tissues, transplants, or devices: Plug mesh Estimated Blood Loss (mL): 5 Blood products transfused: none Procedure in detail: Preop diagnosis: Incarcerated right inguinal hernia Postop diagnosis: Recurrent right inguinal hernia with incarcerated and partial ly strangulated colon and small bowel Procedure: Right inguinal hernia repair with mesh after reduction of incarcerated hernia Surgeon: Magda Oconnor MD Anesthetic: General with LMA intubation along with local Findings: Incarcerated terminal ileum and portion of cecum. Cecum was slightly dusky from decreased blood supply but viable. Small amounts of omentum and process of infarction. Status post previous Shouldice. Cord structures seen above the hernia site and not incorporated in the repair activity. Procedure: Patient placed in a supine position. Prepped and draped sterile fashion to expose his right groin. Incision was created over the palpable mass which was below his previous hernia repair scar. Hernia was isolated with blunt dissection and electrocautery. The defect was slightly widened so that the bowel and omentum could be returned into the peritoneal cavity. Once we had the hernia reduced, I inserted a plug mesh into the space and a nchored it in interrupted fashion with 2-0 Ethibond. [place]lay mesh was placed and again anchored circumferentially with interrupted 2 0 Ethibond. Portion of his external oblique fascia was viable and that was tacked to the remnant fashion in the lower part of his groin using a running 3-0 Vicryl to cover the mesh. Interrupted 4-0 Vicryl placed for reapproximation of subcutaneous tissue and then 4-0 running suture for subcutaneous closure. Steri-Strips and sterile dressings were placed. Patient was awakened, extubated, taken to recovery room in stable condition. Needle, instrument, sponge counts were correct. Blood loss: 5 mL Specimen: None
--- NOTE | 2021-06-10 12:48 | SUR.PHASEI ---
Into PACU at 1230. SBP 80s/50s. MAP over 60. Asesthesia aware. IV fluids running fast
[2021-06-10] MEDS: CELECOXIB 100 MG CAPSULE 200 MG PO ×2 (16:30→21:14)
[2021-06-11 00:16] VITALS: BP 93/53; PULSE 75; RESP 18; TEMP 37.5; O2SAT 95
[2021-06-11 06:12] VITALS: BP 112/68; PULSE 71; RESP 16; TEMP 36.5; O2SAT 95
[2021-06-11 09:19] VITALS: BP 128/82; PULSE 79; RESP 14; TEMP 36.5; O2SAT 92
--- NOTE | 2021-06-11 09:26 | P.DS_ITS ---
History of Present Illness History of Present Illness Date Patient Seen: 06/11/21 Time Patient Seen: 09:26 Chief complaint: Groin swelling/pain/acid reflux x2days Narrative: Patient and report they are moving to [facility] tomorrow (now on hold). Has noticed a lump in the right groin for several days and some GI upset. Has a colonoscopy last week with Dr. Machuca. Increased abdominal pain, nausea and emesis on presentation. CT scan (I reviewed personallY) shows SBO likely related to incarcerated RIH. He has had bilateral hernia repairs in the past in [place], does not think there is mesh. Discharge Providers Provider Date of admission: 06/09/21 15:41 Discharge Date: 06/11/21 Primary care physician: Anurag Rincon MD Discharge provider: Key Oconnor MD Summary Hospital Course Discharge Diagnosis: incarcerated and strangulated RIH. Hospital Course: Repair of recurrent RIH with mesh Status at Discharge Cognitive/behavioral status at discharge: at baseline, oriented Overall status at discharge: patient is progressing back to baseline Time Spent with Patient Time spent: Greater than 30 minutes Exam Vital Signs (past 8 hours): - 06/11/21 06:12 06/11/21 09:19 Temperature 97.7 F 97.7 F Pulse Rate 71 79 Respiratory Rate 16 14 Blood Pressure 112/68 128/82 Pulse Oximetry 95 92 Oxygen Delivery Method Nasal Cannula Oxygen Flow Rate 0 Narrative Exam Narrative: abdomen is soft and benign. RIH repair site is flat, small amount of serosang drainage. Objective Labs Result Diagrams: 06/09/21 13:43 06/09/21 13:43 PFSH Medical History Abdominal hernia Acute hemorrhoid Basal cell carcinoma (BCC) in situ of skin Diverticulitis Erectile dysfunction Hand pain History of nicotine dependence History of skin cancer Hyperlipidemia Hypertension Rectal prolapse Surgical History Hx of hernia repair Family History Father Stroke Cancer Hypertension Mother Cancer Social History marital status: household members: spouse Smoking Status: Former smoker alcohol intake: current substance use type: does not use Discharge Plan Discharge Plan Patient Disposition: Home Discharge orders & Medications Prescriptions: New hydrocodone-acetaminophen 5-325 mg Tablet 2 tab PO Q6HR PRN (Reason: Pain, Severe (7-10)) Qty: 20 RF: 0 celecoxib [Celebrex] 100 mg Capsule 200 mg PO BID Qty: 40 RF: 0 Continued chlorthalidone 25 mg tablet 25 mg PO DAILY Qty: 90 RF: 3 ramipril 10 mg capsule 10 mg PO DAILY Qty: 90 RF: 3 simvastatin 10 mg tablet 10 mg PO DAILY Qty: 90 RF: 3 aspirin 81 mg tablet,delayed release (DR/EC) 81 mg PO DAILY RF: 0 tadalafil [Cialis] 20 mg tablet 20 mg PO DAILY PRN (Reason: Sexual Activity) RF: 0 ibuprofen 600 mg tablet 600 mg PO Q6H PRN (Reason: painful procedure) Qty: 20 RF: 1 Follow up/Referrals: Anurag Rincon MD [Primary Care Provider] - Diet/Activity/Treatments Diet: Diet as Tolerated Activity: no heavy lifting for 4 weeks Skin/Wound/Dressing Care Report to your healthcare provider any signs of infection, such as:: chills, fever, night sweats, increased pain, unusual drainage and unusual redness Visit Report/Discharge Packet Instructions: DI for Hernia Repair Stand Alone Forms: Surgery Discharge Discharge Data Primary Care Provider: Anurag Rincon Attending Provider: Key Oconnor
[2021-06-11] MEDS: CELECOXIB 200 MG CAPSULE PO (09:34)
--- NOTE | 2021-06-11 10:32 | PC.NURSE ---
Patient is alert and oriented x3, he has a small incision to his r.inguinal area that it open to air and has [address]. He is independent in the room. Patient is going to discharge from the hospital at 1100. will be here to pick him up. Will medicate patient with pain meds before he leaves at his request.
[2021-06-11] MEDS: HYDROCODONE/ACET 5/325 TABLET 2 TAB PO (11:12)
[2021-06-11 11:48] VITALS: O2SAT 95
== END 2021-06-11 11:30 | disposition home or self-care (01) ==
LOC: ED 13:21 → AC 15:42
PROVIDERS: Admitting Provider Surgery; Emergency Provider Nurse Practitioner Family; PCP Family Medicine; Referring Provider Nurse Practitioner Family; Visit Provider Surgery
PROC: (CPT 49521; principal; 2021-06-10 11:30)
DX: K40.31 Unilateral inguinal hernia, with obstruction, without gangrene, recurrent (principal); I10 Essential (primary) hypertension; E78.5 Hyperlipidemia, unspecified; Z20.822 Contact with and (suspected) exposure to COVID-19
CPT/HCPCS: 49521; 36415; 74177; 80053; 81003; 83605; 83690; 84145; 85025; 87635; 94760; 96361; 96365; 96366; 96375; 99219; 99284; 99285; C1781; C9803; G0378; J0330; J0690; J1100; J1885; J2250; J2270; J2405; J2704; J3010; Q9967